=== PATIENT | female | born 1935 | race Asian ===

== ENCOUNTER 2017-10-27 17:05 | Emergency (ER) | payer OTHER, MEDICARE ==
[~2017-10-27] VITALS: Ht 172.7 cm; Wt 72.0 kg
[2017-10-27 17:11] VITALS: BP 132/72
== END 2017-10-27 20:02 | disposition home or self-care (01) ==
LOC: ED 19:40
DX: S02.42XA Fracture of alveolus of maxilla, initial encounter for closed fracture (principal); S93.522A Sprain of metatarsophalangeal joint of left great toe, initial encounter; S93.512A Sprain of interphalangeal joint of left great toe, initial encounter; S00.12XA Contusion of left eyelid and periocular area, initial encounter; S80.02XA Contusion of left knee, initial encounter; W01.0XXA Fall on same level from slipping, tripping and stumbling without subsequent striking against object, initial encounter; Y93.01 Activity, walking, marching and hiking; Y92.410 Unspecified street and highway as the place of occurrence of the external cause; Y99.8 Other external cause status
CPT/HCPCS: 70450; 70486; 99284